=== PATIENT | male | born 1960 | race Caucasian/White ===

== ENCOUNTER → 2017-09-27 | Outpatient (CLI) | payer OTHER ==
--- NOTE | 2017-09-27 10:42 | XR ---
EXAMINATION TYPE: XR shoulder complete LT DATE OF EXAM: 09/27/2017 COMPARISON: NONE HISTORY: Pain TECHNIQUE: Shoulder examined in 3 FINDINGS: The humeral head articulates with the glenoid. The acromio-clavicular junction is normal. It is noted that there is some downward sloping of the acr omion which could contribute to impingement syndrome. This could be further evaluated with MRI. No acute fractures or dislocations are evident. A follow up study can be performed 7-10 days from acute trauma for continued pain. IMPRESSION: 1. Downward sloping acromion. 2. No acute osseous abnormality.
== END | disposition home or self-care (01) ==
LOC: RADXRWHC 10:00
PROVIDERS: ATTEND Emergency Medicine
DX: S43.402A Unspecified sprain of left shoulder joint, initial encounter (principal)

== ENCOUNTER → 2019-01-11 | Outpatient (CLI) | payer OTHER ==
--- NOTE | 2019-01-11 15:11 | XR ---
EXAMINATION TYPE: XR shoulder complete LT DATE OF EXAM: 01/11/2019 COMPARISON: NONE HISTORY: Pain TECHNIQUE: Three views are submitted. FINDINGS: The osseous structures are intact. There is no acute fracture or dislocation. Arthropathy of the AC joint with a acromial spur. IMPRESSION: 1. AC joint arthropathy correlate for chronic rotator cuff disease.
--- NOTE | 2019-01-11 15:14 | XR ---
Cervical spine HISTORY: Trauma and pain 6 views of the cervical spine Gastric calcifications are likely present in the distribution of the carotid arteries. Is multilevel facet arthropathy. Lateral extension of endplates at C4-5, C5-6, C6-7 on the right, C3-4 on the left at C2-3 likely causes some foraminal encroachment. Minimal retrolisthesis grade 1 C2-3, C3-4. Cervica l vertebral bodies show preserved height. Bone mineralization is reduced. There is multilevel spondyl osis. IMPRESSION: Degenerative disc disease and facet arthropathy. Osteopenia.
--- NOTE | 2019-01-11 15:15 | XR ---
AP pelvis HISTORY: Trauma, pain in left hip Single frontal view of the pelvis Bone mineralization is mildly reduced. Surgical roel are present over the right pelvis. Alignment is maintained. Mild loss of joint space in the hip joints. Vascular calcifications present within the pelvis. IMPRESSION: No fracture or dislocation.
--- NOTE | 2019-01-11 15:15 | XR ---
EXAMINATION TYPE: XR Hip Complete LT DATE OF EXAM: 01/11/2019 COMPARISON: NONE HISTORY: TECHNIQUE: 2 views submitted FINDINGS: There is no evidence of erosive change or acute fracture. Pain mild concentric narrowing the joint space and there is hypertrophic change of the acetabulum. Sm all spur extending off the greater trochanter. IMPRESSION: 1. No evidence of acute fracture or dislocation. 2. Arthropathy correlate for femoral acetabular impingement.
--- NOTE | 2019-01-11 15:16 | XR ---
Thoracic spine HISTORY: Trauma and pain 3 views of the thoracic spine There is mild spinal curvature. Thoracic vertebral bodies show preserved height. Anterior osteophytes show configuration compatible with diffuse idiopathic skeletal hyperostosis. IMPRESSION: No acute fracture or subluxation.
--- NOTE | 2019-01-11 15:19 | XR ---
Lumbar spine HISTORY: Trauma and pain 3 views of the lumbar spine Lumbar vertebral bodies show preserved height and alignment. Is multilevel spondylosis. Loss of disc height L5-S1, L3-4. Sclerosis present in the posterior elements of the lower lumbar spine compatible with facet arthropathy. There is abdominal aortic aneurysm noted incidentally. This may be as large a s 8 cm although image may be magnified. IMPRESSION: Abdominal aortic aneurysm. Degenerative disc disease. No acute fracture or subluxation. F acet arthropathy. A Yellow level critical message alert has been initiated for Alessandro Salcedo DO via the [employer] Critical Results System on 01/11/2019 3:16 PM. This message alert has been sent to Alessandro sood DO via the preferences provided by the clinician for the receipt of Radiology Critical Finding s. Message ID [id number].
== END | disposition home or self-care (01) ==
LOC: RADXRMAIN 13:54
PROVIDERS: ATTEND Emergency Medicine
DX: M51.36 Other intervertebral disc degeneration, lumbar region (principal); S13.4XXA Sprain of ligaments of cervical spine, initial encounter; S23.3XXA Sprain of ligaments of thoracic spine, initial encounter; S33.5XXA Sprain of ligaments of lumbar spine, initial encounter; S40.012A Contusion of left shoulder, initial encounter; S30.0XXA Contusion of lower back and pelvis, initial encounter; M19.012 Primary osteoarthritis, left shoulder; M85.80 Other specified disorders of bone density and structure, unspecified site; I71.4 Abdominal aortic aneurysm, without rupture
CPT/HCPCS: 72050; 72072; 72100; 72170; 73502

== ENCOUNTER 2023-07-10 10:27 | Inpatient (IN) | payer BC ==
[2023-07-10] MEDS ORDERED: methylPREDNISolone SOD SUCCI 125 MG/2 ML VIAL IV STA (11:09)
[2023-07-10] MEDS ORDERED: ALBUTEROL HFA INHALER INHALATION STA (11:10)
[2023-07-10 11:23] LABS: Basophils % (A) 0 %; Eosinophils % (A) 0 %; HCT 44.3 % (39.0-53.0); HGB 14.7 gm/dL (13.0-17.5); Lymphocytes # (A) 0.6 k/uL (1.0-4.8); Lymphocytes % (A) 8 %; MCHC 33.1 g/dL (31.0-37.0); MCV 96.6 fL (80.0-100.0); Mean Platelet Volume 7.7; Monocytes # (A) 0.4 k/uL (0-1.0); Monocytes % (A) 6 %; Neutrophils # (A) 6.1 k/uL (1.3-7.7); Neutrophils % (A) 83 %; Platelet Count 119 k/uL (150-450); RBC 4.59 m/uL (4.30-5.90); RDW 12.8 % (11.5-15.5); WBC 7.3 k/uL (3.8-10.6)
--- NOTE | 2023-07-10 11:25 | ED ---
General Adult HPI - General Chief complaint: Shortness of Breath Stated complaint: covid+ Time Seen by Provider: 07/10/23 10:44 Source: patient, RN notes reviewed, old records reviewed Mode of arrival: ambulatory Limitations: no limitations - History of Present Illness Initial comments: 62-year-old male presented from urgent care with hypoxia and was diagnosed with coronavirus this morning. Patient has history of tobacco use and is currently smoking, no diagnosis of COPD. He denies central chest pain. He has had fever and dyspnea over the past one to 2 days. No lower extremity pain or swelling. - Related Data Allergies Allergy/AdvReac Type Severity Reaction Status Date / Time sulfamethoxazole Allergy Rash/Hives Verified 07/10/23 10:37 [From Bactrim] trimethoprim [From Bactrim] Allergy Rash/Hives Verified 07/10/23 10:37 Review of Systems ROS Statement: Those systems with pertinent positive or pertinent negative responses have been documented in the HPI. ROS Other: All systems not noted in ROS Statement are negative. Past Medical History History of Any Multi-Drug Resistant Organisms: None Reported Past Surgical History: Heart Catheterization With Stent, Hernia Repair, Tonsillectomy Additional Past Surgical History / Comment(s): 2019 cardiac stents Past Psychological History: No Psychological Hx Reported Smoking Status: Current every day smoker Past Alcohol Use History: None Reported Past Drug Use History: None Reported General Exam Limitations: no limitations General appearance: alert, in no apparent distress Head exam: Present: atraumatic, normocephalic Eye exam: Present: normal appearance, PERRL ENT exam: Present: normal exam Neck exam: Present: normal inspection. Absent: tenderness, meningismus Respiratory exam: Present: respiratory distress, wheezes, rhonchi Cardiovascular Exam: Present: regular rate, normal rhythm GI/Abdominal exam: Present: soft. Absent: distended, tenderness, guarding Extremities exam: Present: normal inspection, normal capillary refill. Absent: pedal edema, calf tenderness Neurological exam: Present: alert, oriented X3, CN II-XII intact. Absent: motor sensory deficit Course Vital Signs 07/10/23 07/10/23 07/10/23 10:31 10:36 11:04 Temperature 98.4 F Pulse Rate 96 96 90 Respiratory 22 26 H 24 Rate Blood Pressure 141/87 141/97 140/90 O2 Sat by Pulse 87 L 86 L 95 Oximetry 07/10/23 11:20 Temperature Pulse Rate 93 Respiratory 29 H Rate Blood Pressure 141/97 O2 Sat by Pulse 98 Oximetry Medical Decision Making - Medical Decision Making Was pt. sent in by a medical professional or institution (BRANDON Funk, DESIZING MACHINE OPERATOR, urgent c are, hospital, or [place] [facility] facility...) When possible be specific @ -No Did you speak to anyone other than the patient for history (EMS, parent, family, police, friend...)? What history was obtained from this source @ -No Did you review nursing and triage notes (agree or disagree)? Why? @ -I reviewed and agree with nursing and triage notes Were old charts reviewed (outside hosp., previous admission, EMS record, old EKG, old radiological studies, urgent care reports/EKG's, [place] [facility] facility records)? Report findings @ -No old charts were reviewed Differential Diagnosis (chest pain, altered mental status, abdominal pain women, abdominal pain men, vaginal bleeding, weakness, fever, dyspnea, syncope, headache, dizziness, GI bleed, back pain, seizure, CVA, palpatations, mental health, musculoskeletal)? @ Differential Dyspnea: Coronary syndrome, arrhythmia, tamponade, asthma, COPD, pulmonary embolism, pneumonia, pneumothorax, pulmonary effusion, anaphylaxis, diabetic ketoacidosis, flailed chest, pulmonary contusion, diaphragmatic rupture, anemia, neuromuscular, this is not meant to be an all-inclusive list. EKG interpreted by me (3pts min.). @ -[Sinus rhythm rate of 94, SC interval 134, QRS duration 102, QTC 417, ST segment depression inferiorly and in the lateral precordial leads. No ST segment elevation. X-rays interpreted by me (1pt min.). @ Chest x-ray showing bilateral interstitial infiltrates in lung bases CT interpreted by me (1pt min.). @ -None done U/S interpreted by me (1pt. min.). @ -None done What testing was considered but not performed or refused? (CT, X-rays, U/S, labs)? Why? @ -None What meds were considered but not given or refused? Why? @ -None Did you discuss the management of the patient with other professionals (professionals i.e. BRANDON Funk, DESIZING MACHINE OPERATOR, lab, RT, psych nurse, social worker psychiatric, corporation lawyer, teacher, chief juvenile probation officer, case technician)? Give summary @ -No Was smoking cessation discussed for >3mins.? @ -No Was critical care preformed (if so, how long)? @ -No Were there social determinants of health that impacted care today? How? (Ho melessness, low income, unemployed, alcoholism, drug addiction, transportation, low edu. Level, literacy, decrease access to med. care, snf, rehab)? @ -No Was there de-escalation of care discussed even if they declined (Discuss DNR or withdrawal of care, Hospice)? DNR status @ -No What co-morbidities impacted this encounter? (DM, HTN, Smoking, COPD, CAD, Cancer, CVA, ARF, Chemo, Hep., AIDS, mental health diagnosis, sleep apnea, morbid obesity)? @ -COPD Was patient admitted / discharged? Hospital course, mention meds given and route, prescriptions, significant lab abnormalities, going to OR and other pertinent info. @ -62-year-old male with cough, dyspnea, current smoker. Diagnosed with coronavirus at urgent care. Patient is hypoxic requiring supplemental oxygen. He has wheezing bilaterally. He will be admitted for COPD exacerbation secondary to coronavirus with likely coronavirus pneumonia. He has a minimally elevated troponin which is likely related to hypoxia in this level will be trended. He has no active chest pain. Admitted to Dr. mckeon. Undiagnosed new problem with uncertain prognosis? @ -No Drug Therapy requiring intensive monitoring for toxicity (Heparin, Nitro, Insulin, Cardizem)? @ -No Were any procedures done? @ -No Diagnosis/symptom? @ -[Coronavirus, hypoxia, COPD exacerbation Acute, or Chronic, or Acute on Chronic? @ -[Acute Uncomplicated (without systemic symptoms) or Complicated (systemic symptoms)? @ -default Side effects of treatment? @ -No Exacerbation, Progression, or Severe Exacerbation? @ -No Poses a threat to life or bodily function? How? (Chest pain, [place], [place], pneumonia, PE, COPD, DKA, ARF, appy, cholecystitis, CVA, Diverticulitis, Homicidal, Suicidal, threat to staff... and all critical care pts) @ -[Yes, respiratory failure - Lab Data Result diagrams: 07/10/23 10:50 07/10/23 10:50 Lab Results 07/10/23 07/10/23 07/10/23 Range/Units 10:50 10:50 10:50 WBC 7.3 (3.8-10.6) k/uL RBC 4.59 (4.30-5.90) m/uL Hgb 14.7 (13.0-17.5) gm/dL Hct 44.3 (39.0-53.0) % MCV 96.6 (80.0-100.0) fL MCH 32.0 (25.0-35.0) pg MCHC 33.1 (31.0-37.0) g/dL RDW 12.8 (11.5-15.5) % Plt Count 119 L (150-450) k/uL MPV 7.7 Neutrophils % 83 % Lymphocytes % 8 % Monocytes % 6 % Eosinophils % 0 % Basophils % 0 % Neutrophils # 6.1 (1.3-7.7) k/uL Lymphocytes # 0.6 L (1.0-4.8) k/uL Monocytes # 0.4 (0-1.0) k/uL Eosinophils # 0.0 (0-0.7) k/uL Basophils # 0.0 (0-0.2) k/uL PT 11.1 (10.0-12.5) sec INR 1.0 (<1.2) APTT 28.3 (22.0-30.0) sec Sodium 137 (137-145) mmol/L Potassium 4.2 (3.5-5.1) mmol/L Chloride 99 (98-107) mmol/L Carbon Dioxide 30 (22-30) mmol/L Anion Gap 8 mmol/L BUN 15 (9-20) mg/dL Creatinine 0.66 (0.66-1.25) mg/dL Est GFR (CKD-EPI)AfAm >90 (>60 ml/min/1.73 sqM) Est GFR (CKD-EPI)NonAf >90 (>60 ml/min/1.73 sqM) Glucose 108 H (74-99) mg/dL Plasma Lactic Acid Basil (0.7-2.0) mmol/L Calcium 9.0 (8.4-10.2) mg/dL Total Bilirubin 0.6 (0.2-1.3) mg/dL AST 38 (17-59) U/L ALT 31 (4-49) U/L Alkaline Phosphatase 72 (38-126) U/L Troponin I (0.000-0.034) ng/mL Total Protein 6.5 (6.3-8.2) g/dL Albumin 3.8 (3.5-5.0) g/dL 07/10/23 07/10/23 Range/Units 10:50 10:50 WBC (3.8-10.6) k/uL RBC (4.30-5.90) m/uL Hgb (13.0-17.5) gm/dL Hct (39.0-53.0) % MCV (80.0-100.0) fL MCH (25.0-35.0) pg MCHC (31.0-37.0) g/dL RDW (11.5-15.5) % Plt Count (150-450) k/uL MPV Neutrophils % % Lymphocytes % % Monocytes % % Eosinophils % % Basophils % % Neutrophils # (1.3-7.7) k/uL Lymphocytes # (1.0-4.8) k/uL Monocytes # (0-1.0) k/uL Eosinophils # (0-0.7) k/uL Basophils # (0-0.2) k/uL PT (10.0-12.5) sec INR (<1.2) APTT (22.0-30.0) sec Sodium (137-145) mmol/L Potassium (3.5-5.1) mmol/L Chloride (98-107) mmol/L Carbon Dioxide (22-30) mmol/L Anion Gap mmol/L BUN (9-20) mg/dL Creatinine (0.66-1.25) mg/dL Est GFR (CKD-EPI)AfAm (>60 ml/min/1.73 sqM) Est GFR (CKD-EPI)NonAf (>60 ml/min/1.73 sqM) Glucose (74-99) mg/dL Plasma Lactic Acid Basil 0.6 L (0.7-2.0) mmol/L Calcium (8.4-10.2) mg/dL Total Bilirubin (0.2-1.3) mg/dL AST (17-59) U/L ALT (4-49) U/L Alkaline Phosphatase (38-126) U/L Troponin I 0.045 H* (0.000-0.034) ng/mL Total Protein (6.3-8.2) g/dL Albumin (3.5-5.0) g/dL Disposition Clinical Impression: Acute exacerbation of chronic obstructive pulmonary disease, COVID-19 Disposition: ADMITTED IP TO THIS HOSP Condition: Stable Is patient prescribed a controlled substance at d/c from ED?: No Referrals: Alessandro Abebe MD [Primary Care Provider] - 1-2 days Time of Disposition: 12:57
[2023-07-10 11:41] LABS: ALT 31 U/L (4-49); AST 38 U/L (17-59); African American GFR (CKD) >90 (>60 ml/min/1.73 sqM); Albumin 3.8 g/dL (3.5-5.0); Alkaline Phosphatase 72 U/L (38-126); Anion Gap 8 mmol/L; Blood Urea Nitrogen 15 mg/dL (9-20); Carbon Dioxide 30 mmol/L (22-30); Chloride 99 mmol/L (98-107); Glucose 108 mg/dL (74-99); Non-African American GFR(CKD) >90 (>60 ml/min/1.73 sqM); Potassium 4.2 mmol/L (3.5-5.1); Sodium 137 mmol/L (137-145); Total Bilirubin 0.6 mg/dL (0.2-1.3); Total Protein 6.5 g/dL (6.3-8.2)
[2023-07-10 12:06] LABS: Partial Thromboplastin Time 28.3 sec (22.0-30.0); Prothrombin Time 11.1 sec (10.0-12.5)
--- NOTE | 2023-07-10 12:08 | XR ---
EXAMINATION TYPE: XR chest 2V DATE OF EXAM: 07/10/2023 COMPARISON: None HISTORY: 62 year-old male shortness of breath, difficulty breathing TECHNIQUE: PA and lateral views FINDINGS: Heart upper limits of normal in size. Hyperinflation. Patchy interstitial densities mid and lower luigi gs. No mu consolidation or pleural effusion. IMPRESSION: COPD with patchy interstitial densities mid and lower lungs. This could represent patchy COVID infilt rates.
[2023-07-10] MEDS ORDERED: ACETAMINOPHEN TAB 325 MG TAB PO PRN (12:50)
[2023-07-10] MEDS ORDERED: NALOXONE 0.4 MG/ML 1 ML VIAL IV PRN (12:50)
[2023-07-10] MEDS: SODIUM CHLORIDE 0.9% 1,000 ML IV SCH (15:13)
[2023-07-10] MEDS: CHOLECALCIFEROL 25 MCG (1000 IU) TABLET PO SCH (15:13)
[2023-07-10] MEDS: methylPREDNISolone SOD SUCCI 125 MG/2 ML VIAL IV SCH ×2 (16:59→23:15)
[2023-07-10] MEDS ORDERED: ALBUTEROL HFA INHALER INHALATION PRN (18:02)
[2023-07-10] MEDS: NICOTINE 14MG/24HR PATCH TRANSDERM SCH (18:11)
[2023-07-10] MEDS: ALBUTEROL HFA INHALER INHALATION SCH (18:14)
[2023-07-10] MEDS: FAMOTIDINE 20 MG TAB PO SCH (20:10)
[2023-07-10] MEDS: HEPARIN SODIUM,PORCINE 5,000 UNIT/ML 1 ML VIAL SQ SCH (20:10)
[2023-07-10] MEDS ORDERED: FAMOTIDINE 20 MG/2 ML VIAL IV SCH (21:00)
[2023-07-10] MEDS: ASPIRIN 81 MG PO SCH (23:16)
--- NOTE | 2023-07-10 23:16 | P.HPIM ---
History of Present Illness This is a pleasant 62 years old male with past medical history of coronary artery disease status post stent in 2019. Presents because of worsening shortness of breath associated with cough and white phlegm over the last few days but no overt chest pain Patient denies also abdominal pain no change in urine or bowel habits. No vomi ting. No fever. He smokes without specification and his counseled to quit and he agrees. No illicit drug source alcohol. Labs reviewed rather unremarkable except for mildly elevated troponin. Covid test is positive EKG showing normal sinus rhythm at [address] depression in the lateral limits. Chest x-ray showed COPD changes with bilateral mild infiltrates in the middle and lower zones. Patient is started on IV Solu-Medrol and normal saline. Review of Systems Review of systems CONSTITUTIONAL: No fever, no malaise, no fatigue. HEENT: No recent visual problems or hearing problems. Denied any sore throat. CARDIOVASCULAR: No orthopnea, PND, no palpitations, no syncope. PULMONARY: No chest wall tenderness, no hemoptysis. GASTROINTESTINAL: No diarrhea, no nausea, no vomiting, no abdominal pain. Normoactive bowel sounds. NEUROLOGICAL: No headaches, no weakness, no numbness. HEMATOLOGICAL: Denies any bleeding or petechiae. GENITOURINARY: Denies any burning micturition, frequency, or urgency. MUSCULOSKELETAL/RHEUMATOLOGICAL: Denies any joint pain, swelling, or any muscle pain. ENDOCRINE: Denies any polyuria or polydipsia. Past Medical History History of Any Multi-Drug Resistant Organisms: None Reported Past Surgical History: Heart Catheterization With Stent, Hernia Repair, Tonsillectomy Additional Past Surgical History / Comment(s): 2019 cardiac stents Past Psychological History: No Psychological Hx Reported Smoking Status: Current every day smoker Past Alcohol Use History: None Reported Past Drug Use History: None Reported Medications and Allergies Home Medications Medication Instructions Recorded Confirmed Type Acetaminophen [Tylenol Arthritis] 650 mg PO DAILY 07/10/23 07/10/23 History Aspirin EC [Ecotrin Low Dose] 81 mg PO DAILY 07/10/23 07/10/23 History Clobetasol Propionate [Temovate 1 applic TOPICAL BID 07/10/23 07/10/23 History 0.05% Cream] Multivit-Mins/Iron/Folic/Lycop 1 tab PO DAILY 07/10/23 07/10/23 History [Centrum Men's Tablet] Naproxen [EC-Naprosyn] 500 mg PO BID 07/10/23 07/10/23 History Allergies Allergy/AdvReac Type Severity Reaction Status Date / Time sulfamethoxazole Allergy Rash/Hives Verified 07/10/23 14:09 [From Bactrim] trimethoprim [From Bactrim] Allergy Rash/Hives Verified 07/10/23 14:09 Physical Exam Vitals: Vital Signs Temp Pulse Resp BP Pulse Ox 07/10/23 11:20 93 29 H 141/97 98 07/10/23 11:04 90 24 140/90 95 07/10/23 10:36 96 26 H 141/97 86 L 07/10/23 10:31 98.4 F 96 22 141/87 87 L Intake and Output 07/09/23 07/10/23 07/10/23 22:59 06:59 14:59 Other: Weight 114.305 kg GENERAL: The patient is alert and oriented x3, not in any acute distress. Well developed, well nourished. HEENT: Pupils are round and equally reacting to light. EOMI. No scleral icterus. No conjunctival pallor. Normocephalic, atraumatic. No pharyngeal erythema. No thyromegaly. CARDIOVASCULAR: S1 and S2 present. No murmurs, rubs, or gallops. -PULMONARY: Chest is clear to auscultation, bilateral expiratory wheezing , no crackles. ABDOMEN: Soft, nontender, nondistended, normoactive bowel sounds. No palpable organomegaly. MUSCULOSKELETAL: No joint swelling or deformity. EXTREMITIES: No cyanosis, clubbing, or pedal edema. NEUROLOGICAL: Gross neurological examination did not reveal any focal deficits. SKIN: No rashes. no petechiae. Results CBC & Chem 7: 07/10/23 10:50 07/10/23 10:50 Labs: Abnormal Lab Results - Last 24 Hours (Table) 07/10/23 07/10/23 07/10/23 Range/Units 10:50 10:50 10:50 Plt Count 119 L (150-450) k/uL Lymphocytes # 0.6 L (1.0-4.8) k/uL Glucose 108 H (74-99) mg/dL Plasma Lactic Acid Basil 0.6 L (0.7-2.0) mmol/L Troponin I (0.000-0.034) ng/mL 07/10/23 Range/Units 10:50 Plt Count (150-450) k/uL Lymphocytes # (1.0-4.8) k/uL Glucose (74-99) mg/dL Plasma Lactic Acid Basil (0.7-2.0) mmol/L Troponin I 0.045 H* (0.000-0.034) ng/mL Assessment and Plan Assessment: Acute Covid infection Acute COPD exacerbation Mildly elevated troponin most likely secondary to Covid infection, rule out cardiac causes Pertinent dependence History of coronary artery disease status post stenting Obesity with BMI of 30 4. Plan: Continue with IV Solu-Medrol A bronchodilator Vitamin D C and zinc. Pulmonary consult Continue with aspirin Cardiology consult Check echocardiogram Labs and medication were reviewed.. Continue same treatment. Continue with symptomatic treatment. Resume home medication. Monitor labs and vitals. DVT and GI prophylaxis. Further recommendations as per clinical course of the patient DVT prophylaxis: Subcutaneous heparin GI Prophylaxis: Pepcid PT/OT: Pending Prognosis is guarded
[2023-07-11] MEDS: SODIUM CHLORIDE 0.9% 1,000 ML IV SCH ×2 (05:04→17:19)
[2023-07-11] MEDS: methylPREDNISolone SOD SUCCI 125 MG/2 ML VIAL IV SCH ×4 (05:07→23:02)
[2023-07-11] MEDS: NICOTINE 14MG/24HR PATCH TRANSDERM SCH (08:20)
[2023-07-11] MEDS: ASCORBIC ACID 500 MG TAB PO SCH (08:20)
[2023-07-11] MEDS: ASPIRIN 81 MG PO SCH (08:21)
[2023-07-11] MEDS: HEPARIN SODIUM,PORCINE 5,000 UNIT/ML 1 ML VIAL SQ SCH ×2 (08:21→19:49)
[2023-07-11] MEDS: ZINC SULFATE 220 MG CAP PO SCH (08:21)
[2023-07-11] MEDS: CHOLECALCIFEROL 25 MCG (1000 IU) TABLET PO SCH (08:21)
[2023-07-11] MEDS: FAMOTIDINE 20 MG TAB PO SCH ×2 (08:21→19:50)
[2023-07-11 08:43] LABS: Basophils % (A) 0 %; Eosinophils % (A) 0 %; HCT 44.5 % (39.0-53.0); HGB 14.5 gm/dL (13.0-17.5); Lymphocytes # (A) 0.3 k/uL (1.0-4.8); Lymphocytes % (A) 3 %; MCH 32.2 pg (25.0-35.0); MCHC 32.6 g/dL (31.0-37.0); MCV 98.7 fL (80.0-100.0); Mean Platelet Volume 7.6; Monocytes # (A) 0.3 k/uL (0-1.0); Monocytes % (A) 3 %; Neutrophils # (A) 8.9 k/uL (1.3-7.7); Neutrophils % (A) 93 %; Platelet Count 141 k/uL (150-450); RBC 4.51 m/uL (4.30-5.90); RDW 12.8 % (11.5-15.5); WBC 9.5 k/uL (3.8-10.6)
[2023-07-11] MEDS ORDERED: ASPIRIN 81 MG PO SCH (09:00)
[2023-07-11 09:06] LABS: African American GFR (CKD) >90 (>60 ml/min/1.73 sqM); Anion Gap 7 mmol/L; Blood Urea Nitrogen 18 mg/dL (9-20); Carbon Dioxide 30 mmol/L (22-30); Chloride 101 mmol/L (98-107); Glucose 177 mg/dL (74-99); LDH 235 U/L (120-246); Non-African American GFR(CKD) >90 (>60 ml/min/1.73 sqM); Potassium 4.7 mmol/L (3.5-5.1); Sodium 138 mmol/L (137-145)
[2023-07-11] MEDS: ALBUTEROL HFA INHALER INHALATION SCH ×4 (09:25→20:54)
[2023-07-11 09:26] LABS: C Reactive Protein 6.3 mg/dL (<1.0)
--- NOTE | 2023-07-11 11:56 | P.CNPUL ---
History of Present Illness Consult date: 07/11/23 Reason for consult: dyspnea History of present illness: This is a 62-year-old male patient was being seen for a Covid 19 infection. The patient tested positive for Covid 19 yesterday. Started getting sick and his symptoms started approximately 4 days ago. He is an ex-smoker. Probably COPD at baseline although this hasn't been officially diagnosed. Does not utilize any form of respiratory medications or inhalers. He had increased cough and congestion and chest tightness and wheezing and he ended up coming into the hospital, found hypoxic and currently is on oxygen by nasal cannula and is maintained on 2 L. Chest x-ray showed COPD with patchy interstitial infiltrates in the mid and lower lung [place] bilaterally. No previous history of DVT or pulmonary embolism. No previous history of Covid 19 infection. The patient has had the original series of vaccination for Covid 19. No infections in the past. White cell count is at 9.5, and was 14, platelet count of 141. BUN is at 80 with a creatinine of 0.6. D-dimer is at 1.58. Sodium is at 138. Troponins are 0.03 and down trending and the LDH level is at 235. No altered mentation. No gastrointestinal symptoms. Review of Systems Constitutional: Reports fatigue, Reports poor appetite, Reports weakness Ears: deny: decreased hearing, ear discharge, earache, tinnitus Ears, nose, mouth and throat: Reports as per HPI Breasts: absent: as per HPI, gynecomastia Cardiovascular: Reports claudication, Reports dyspnea on exertion Respiratory: Reports cough, Reports dyspnea Gastrointestinal: Reports as per HPI Genitourinary: Reports as per HPI Musculoskeletal: Reports as per HPI Musculoskeletal: absent: ankle pain, ankle stiffness, ankle swelling, as per HPI, elbow pain, elbow stiffness, elbow swelling, foot pain, foot stiffness, foot swelling, hand pain, hand stiffness, hand swelling, hip pain, hip stiffne ss, hip swelling, knee pain, knee stiffness, knee swelling, shoulder pain, shoulder stiffness, shoulder swelling, wrist pain, wrist stiffness, wrist swelling Integumentary: Reports as per HPI Neurological: Reports as per HPI Psychiatric: Reports as per HPI Endocrine: Reports as per HPI Hematologic/Lymphatic: Reports as per HPI Past Medical History Past Medical History: COPD Additional Past Medical History / Comment(s): AAA History of Any Multi-Drug Resistant Organisms: None Reported Past Surgical History: Hernia Repair, Tonsillectomy Additional Past Surgical History / Comment(s): 2019 cardiac stents Past Anesthesia/Blood Transfusion Reactions: No Reported Reaction Past Psychological History: No Psychological Hx Reported Smoking Status: Current every day smoker Past Alcohol Use History: None Reported Past Drug Use History: None Reported Medications and Allergies Home Medications Medication Instructions Recorded Confirmed Type Acetaminophen [Tylenol Arthritis] 650 mg PO DAILY 07/10/23 07/10/23 History Aspirin EC [Ecotrin Low Dose] 81 mg PO DAILY 07/10/23 07/10/23 History Clobetasol Propionate [Temovate 1 applic TOPICAL BID 07/10/23 07/10/23 History 0.05% Cream] Multivit-Mins/Iron/Folic/Lycop 1 tab PO DAILY 07/10/23 07/10/23 History [Centrum Men's Tablet] Naproxen [EC-Naprosyn] 500 mg PO BID 07/10/23 07/10/23 History Allergies Allergy/AdvReac Type Severity Reaction Status Date / Time sulfamethoxazole Allergy Rash/Hives Verified 07/10/23 14:09 [From Bactrim] trimethoprim [From Bactrim] Allergy Rash/Hives Verified 07/10/23 14:09 Physical Exam Vitals: Vital Signs Temp Pulse Pulse Resp BP BP Pulse Ox 07/11/23 09:25 96 07/11/23 08:19 98.1 F 104 H 20 137/94 92 L 07/11/23 04:00 79 18 150/97 96 07/10/23 23:35 76 18 141/78 95 07/10/23 20:00 98.2 F 85 18 143/72 95 07/10/23 15:05 97.9 F 99 19 135/99 95 07/10/23 14:00 99 21 131/92 95 07/10/23 13:30 92 24 111/73 93 L 07/10/23 12:30 98 28 H 128/97 97 07/10/23 12:00 89 24 128/100 97 07/10/23 11:20 93 29 H 141/97 98 07/10/23 11:04 90 24 140/90 95 07/10/23 10:36 96 26 H 141/97 86 L 07/10/23 10:31 98.4 F 96 22 141/87 87 L Intake and Output 07/10/23 07/11/23 07/11/23 22:59 06:59 14:59 Intake Total 658 480 Balance 658 480 Intake: Oral 658 480 Other: Voiding Method Toilet Toilet Toilet # Bowel Movements 1 Gen. appearance obese, comfortable currently on 2 L Head exam was generally normal. There was no scleral icterus or corneal arcus. Mucous membranes were moist. Neck was supple and without jugular venous distension, thyromegaly, or carotid bruits. Carotids were easily palpable bilaterally. There was no adenopathy. Lungs although the medicine scattered WHEEZES and rhonchi heard bilaterally Cardiac exam revealed the PMI to be normally situated and sized. The rhythm was regular and no extrasystoles were noted during several minutes of auscultation. The first and second heart sounds were normal and physiologic splitting of the second heart sound was noted. There were no murmurs, rubs, clicks, or gallops. Abdominal exam revealed normal bowel sounds. The abdomen was soft, non-tender, and without masses, organomegaly, or appreciable enlargement of the abdominal aorta. Examination of the extremities revealed easily palpable radial, femoral and pedal pulses. There was no cyanosis, clubbing or edema. Examination of the skin revealed no evidence of significant rashes, suspicious appearing nevi or other concerning lesions. Neurologically, the patient is awake and alert and the patient does not have any focal neurological deficit. Cranial nerves are essentially intact. Results - Laboratory Findings CBC and BMP: 07/11/23 08:11 07/11/23 08:11 PT/INR, D-dimer PT 11.1 sec (10.0-12.5) 07/10/23 10:50 INR 1.0 (<1.2) 07/10/23 10:50 Abnormal lab findings: Abnormal Labs 07/10/23 07/10/23 07/10/23 10:50 10:50 10:50 Plt Count 119 L Neutrophils # Lymphocytes # 0.6 L Creatinine Glucose 108 H Plasma Lactic Acid Basil 0.6 L Troponin I C-Reactive Protein SARS-CoV-2 (PCR) 07/10/23 07/10/23 07/10/23 10:50 14:18 14:23 Plt Count Neutrophils # Lymphocytes # Creatinine Glucose Plasma Lactic Acid Basil Troponin I 0.045 H* 0.036 H* C-Reactive Protein SARS-CoV-2 (PCR) Detected A 12/10/23 12/10/23 08:11 08:11 Plt Count 141 L Neutrophils # 8.9 H Lymphocytes # 0.3 L Creatinine 0.60 L Glucose 177 H Plasma Lactic Acid Basil Troponin I C-Reactive Protein 6.3 H SARS-CoV-2 (PCR) - Diagnostic Findings Chest x-ray: image reviewed Assessment and Plan Plan: Acute Covid 19 infection. Symptoms started around 3-4 days ago. Diagnosis was confirmed yesterday. Received original vaccination series. No boosters. This is the only infection and the patient had with Covid 19. Acute exacerbation of COPD Bilateral interstitial pulmonary infiltrates, consider possibility of Covid 19 related pneumonia Mildly elevated d-dimer Shortness of breath secondary to above History of abdominal aortic aneurysm status post endovascular stent grafting Obesity Plan Obtain a CT angiogram of the chest, rule out pulmonary embolism, rule out COPD, rule out interstitial pulmonary infiltrates related to Covid 19 Titrate oxygen flow to maintain saturation above 90% Continue IV Solu-Medrol Continue vitamin C and zinc Titrate oxygen flow to maintain saturation above 90% Ventolin HFA 4 times a day [id number] LDH is mildly elevated We'll continue to follow
--- NOTE | 2023-07-11 12:20 | CT ---
EXAMINATION TYPE: CT angio chest DATE OF EXAM: 07/11/2023 COMPARISON: Radiograph 07/10/2023 HISTORY: 62-year-old male with shortness of breath, Covid, dyspnea. Possible PE. TECHNIQUE: Contiguous axial scanning of the chest after the administration of 100 ml mL of Isovue 370 . Coronal/sagittal MIP reconstructions performed. CT DLP: 625.8mGycm. Automatic exposure control utilized for a dose reduction. FINDINGS: Heart upper limits of normal in size without pericardial effusion. No flattening of the interventricu lar septum reflux of contrast into the hepatic veins. LAD and circumflex coronary artery calcificatio ns are present. Ectatic aortic root at 3.9 cm. Conventional arch vessel branching anatomy. Ectatic upper descending t horacic aorta 3.4 cm. Scattered nonenlarged mediastinal and right hilar lymph nodes. Satisfactory opacification of the pulmonary arterial system. The right and left main pulmonary arteri es are mildly dilated up to 2.8 cm suggesting underlying pulmonary artery hypertension. There is some mild beam hardening artifacts in the perihilar regions are relating to dense contrast in the SVC. Al lowing for this limitation, no definite pulmonary embolus is seen. Muscle moderate diffuse bronchial wall thickening. Mild emphysematous change. Mild patchy densities i n the lower lungs. No mu consolidation or pleural effusion. Tiny hiatal hernia. Visualized upper abdomen shows thickening of the left adrenal gland without discr ete nodularity. Nonspecific, mildly dilated loop of jejunum anterior left upper quadrant, probably transient. There i s variant anatomy with a separate takeoff of the common hepatic artery directly from the aorta. Bones: [facility] throughout the mid and lower thoracic spine. IMPRESSION: 1. Prominent beam hardening artifact from dense contrast bolus in the SVC. Allowing for this limitati on, no definite pulmonary embolus is seen. 2. COPD with mild emphysema. Pulmonary arterial hypertension. 3. Mild patchy bibasilar densities, possibly minimal change due to atypical/ COVID pneumonia.
[2023-07-11] MEDS ORDERED: REMDESIVIR 200 MG in SODIUM CHLORIDE 0.9% 250 ML IVPB ONE (13:00)
--- NOTE | 2023-07-11 15:01 | P.CRDCN ---
History of Present Illness Consult date: 07/11/23 Requesting physician: Varinder E Sheet Reason for Consult (text): COVID, pos trop Chief complaint: Shortness of breath, cough History of present illness: This is a pleasant 62-year-old gentleman with history of abdominal aortic aneurysm, status post stenting, follows with CV surgeon out of [place]. He has history of hypertension, hyperlipidemia, diabetes or CAD. He has a history of smoking about 15 cigarettes a day for over 40 years. Initially presented to urgent care with cough and shortness of breath. He was found to be positive for cold blood and oxygen saturation was low 80s. We were asked to the patient in consultation for troponin elevation which came back as 0.045, 0.036, 0.025 0.022. Denies any complaints of chest discomfort. EKG showed sinus mechanism with diffuse ST-T wave abnormalities with no EKGs to compare. Blood pressure has been on the high side. Heart rate has been in the 90s. He is being followed by pulmonary. He's been Initiated on Solu-Medrol and Remdesivir. He is overall feeling better. He has mild dyspnea on exertion at baseline. He denies any complaints of orthopnea, PND or edema. Has no chest discomfort or palpitations. Has no dizziness or syncope. Past Medical History Past Medical History: COPD Additional Past Medical History / Comment(s): AAA History of Any Multi-Drug Resistant Organisms: None Reported Past Surgical History: Hernia Repair, Tonsillectomy Additional Past Surgical History / Comment(s): 2019 cardiac stents Past Anesthesia/Blood Transfusion Reactions: No Reported Reaction Past Psychological History: No Psychological Hx Reported Smoking Status: Current every day smoker Past Alcohol Use History: None Reported Past Drug Use History: None Reported Medications and Allergies Home Medications Medication Instructions Recorded Confirmed Type Acetaminophen [Tylenol Arthritis] 650 mg PO DAILY 07/10/23 07/10/23 History Aspirin EC [Ecotrin Low Dose] 81 mg PO DAILY 07/10/23 07/10/23 History Clobetasol Propionate [Temovate 1 applic TOPICAL BID 07/10/23 07/10/23 History 0.05% Cream] Multivit-Mins/Iron/Folic/Lycop 1 tab PO DAILY 07/10/23 07/10/23 History [Centrum Men's Tablet] Naproxen [EC-Naprosyn] 500 mg PO BID 07/10/23 07/10/23 History Allergies Allergy/AdvReac Type Severity Reaction Status Date / Time sulfamethoxazole Allergy Rash/Hives Verified 07/10/23 14:09 [From Bactrim] trimethoprim [From Bactrim] Allergy Rash/Hives Verified 07/10/23 14:09 Physical Exam Vitals: Vital Signs Temp Pulse Resp BP Pulse Ox 07/11/23 12:00 98.4 F 80 19 145/83 96 07/11/23 09:25 96 07/11/23 08:19 98.1 F 104 H 20 137/94 92 L 07/11/23 04:00 79 18 150/97 96 07/10/23 23:35 76 18 141/78 95 07/10/23 20:00 98.2 F 85 18 143/72 95 07/10/23 15:05 97.9 F 99 19 135/99 95 Intake and Output 07/10/23 07/11/23 07/11/23 22:59 06:59 14:59 Intake Total 658 838 Balance 658 838 Intake: Oral 658 838 Other: Voiding Method Toilet Toilet Toilet # Bowel Movements 1 PHYSICAL EXAMINATION: This is a 62-year-old male in no apparent distress at the time of my examination. VITAL SIGNS: Reviewed. HEENT: Head is atraumatic, normocephalic. Pupils are equal, round. Sclerae anicteric. Conjunctivae are clear. Mucous membranes of the mouth are moist. Neck is supple. There is no elevated jugular venous pressure. No carotid bruit is heard. CHEST EXAMINATION: Lungs reveal expiratory wheezing throughout with scattered rhonchi. Respirations even and nonlabored. HEART EXAMINATION: Heart regular, positive S1 and S2. No S3. No S4. No clicks, rubs or murmurs. ABDOMEN: Soft, nontender. Bowel sounds are heard. No organomegaly noted. EXTREMITIES: 2+ peripheral pulses with no evidence of peripheral edema and no calf tenderness noted. NEUROLOGIC EXAMINATION: Patient is awake, alert and oriented x3. Results 07/11/23 08:11 07/11/23 08:11 Cardiac Enzymes 07/10/23 07/10/23 07/11/23 Range/Units 14:23 18:19 08:11 Lactate Dehydrogenase 235 (120-246) U/L Troponin I 0.036 H* 0.025 (0.000-0.034) ng/mL 07/11/23 07/11/23 Range/Units 08:11 10:56 Lactate Dehydrogenase 225 (120-246) U/L Troponin I 0.022 (0.000-0.034) ng/mL CBC 07/11/23 Range/Units 08:11 WBC 9.5 (3.8-10.6) k/uL RBC 4.51 (4.30-5.90) m/uL Hgb 14.5 (13.0-17.5) gm/dL Hct 44.5 (39.0-53.0) % Plt Count 141 L (150-450) k/uL Comprehensive Metabolic Panel 07/11/23 Range/Units 08:11 Sodium 138 (137-145) mmol/L Potassium 4.7 (3.5-5.1) mmol/L Chloride 101 (98-107) mmol/L Carbon Dioxide 30 (22-30) mmol/L BUN 18 (9-20) mg/dL Creatinine 0.60 L (0.66-1.25) mg/dL Glucose 177 H (74-99) mg/dL Calcium 9.0 (8.4-10.2) mg/dL Current Medications Generic Name Dose Route Start Last Admin Trade Name Freq PRN Reason Stop Dose Admin Acetaminophen 650 mg 07/10/23 12:50 Acetaminophen Tab 325 Mg Tab PO Q6HR PRN Mild Pain or Fever > 100.5 Albuterol Sulfate 2 puff 07/10/23 20:00 07/11/23 11:40 Albuterol Hfa Inhaler INHALATION Not Given RT-QID [facility] Ascorbic Acid 1,000 mg 07/11/23 09:00 07/11/23 08:20 Ascorbic Acid 500 Mg Tab PO 1,000 mg DAILY ASHLEY Administration Aspirin 81 mg 07/10/23 23:11 07/11/23 08:21 Aspirin 81 Mg PO 81 mg DAILY ASHLEY Administration Cholecalciferol 50 mcg 07/10/23 12:30 07/11/23 08:21 Cholecalciferol 25 Mcg (1000 Iu) Tablet PO 50 mcg DAILY ASHLEY Administration Famotidine 20 mg 07/10/23 21:00 07/11/23 08:21 Famotidine 20 Mg Tab PO 20 mg Q12HR ASHLEY Administration Heparin Sodium (Porcine) 5,000 unit 07/10/23 21:00 07/11/23 08:21 Heparin Sodium,Porcine 5,000 Unit/Ml 1 Ml Vial SQ 5,000 unit Q12HR ASHLEY Administration Sodium Chloride 1,000 mls @ 75 mls/hr 07/10/23 13:00 07/11/23 05:04 Saline 0.9% IV 75 mls/hr .[id number] ASHLEY Administration Remdesivir 100 mg/ Sodium 250 mls @ 250 mls/hr 07/12/23 13:00 Chloride IVPB 07/15/23 13:59 Q24H ASHLEY Methylprednisolone Sodium Succinate 60 mg 07/10/23 18:00 07/11/23 11:33 Methylprednisolone Sod Succi 125 Mg/2 Ml Vial IV 60 mg Q6HR ASHLEY Administration Naloxone HCl 0.2 mg 07/10/23 12:50 Naloxone 0.4 Mg/Ml 1 Ml Vial IV Q2M PRN Opioid Reversal Nicotine 1 patch 07/10/23 18:15 07/11/23 08:20 Nicotine 14mg/24hr Patch TRANSDERM 1 patch DAILY ASHLEY Administration Zinc Sulfate 220 mg 07/11/23 09:00 07/11/23 08:21 Zinc Sulfate 220 Mg Cap PO 220 mg DAILY ASHLEY Administration Intake and Output 07/10/23 07/11/23 07/11/23 22:59 06:59 14:59 Intake Total 658 838 Balance 658 838 Intake: Oral 658 838 Other: Voiding Method Toilet Toilet Toilet # Bowel Movements 1 07/11/23 08:11 07/11/23 08:11 Assessment and Plan Assessment: #1 COVID #2 minimally elevated troponin, likely secondary to a type II event #3 AAA s/p stenting Plan: From cardiology's perspective we will obtain a 2-D echo with Doppler study to assess cardiac structure and function. We will add a beta amadou. Continue low dose aspirin. Patient will likely require stress testing as an outpatient to rule out underlying ischemia. Further recommendations depending on echocardiogram results. [employer] note has been reviewed, I agree with a documented findings and plan of care. Patient was seen and examined.
[2023-07-11] MEDS: METOPROLOL TARTRATE 25 MG TAB PO SCH (19:50)
[2023-07-11 23:36] LABS: Chol/HDL Ratio 3.09 Ratio; LDL Cholesterol,Calculated 84.8 mg/dL (0.0-131.0); VLDL Calculation 15.96 mg/dL (5.00-40.00)
--- NOTE | 2023-07-11 23:40 | P.PN ---
Subjective This is a pleasant 62 years old male with past medical history of coronary artery disease status post stent in 2019. Presents because of worsening shortness of breath associated with cough and white phlegm over the last few days but no overt chest pain Patient denies also abdominal pain no change in urine or bowel habits. No vomiting. No fever. He smokes without specification and his counseled to quit and he agrees. No illicit drug source alcohol. Labs reviewed rather unremarkable except for mildly elevated troponin. Covid test is positive EKG showing normal sinus rhythm at [address] depression in the lateral limits. Chest x-ray showed COPD changes with bilateral mild infiltrates in the middle and lower zones. Patient is started on IV Solu-Medrol and normal saline. 07/11/2023 Patient sitting in chair mildly dyspneic no chest pain He is saturating well on the ventilator oxygen via nasal cannula in high 90s D-dimer was mildly elevated, CTPA was negative for PE Portcalcitonin is negative, LDH is normal, CRP mildly elevated Most likely patient has COPD exacerbation secondary to Covid infection however patient was started on remdesivir Echocardiogram is pending in the recovery to Covid infection Review of systems CONSTITUTIONAL: No fever, no malaise, no fatigue. HEENT: No recent visual problems or hearing problems. Denied any sore throat. CARDIOVASCULAR: No orthopnea, PND, no palpitations, no syncope. GASTROINTESTINAL: No diarrhea, no nausea, no vomiting, no abdominal pain. Normoactive bowel sounds. NEUROLOGICAL: No headaches, no weakness, no numbness. Active Medications Generic Name Dose Route Start Last Admin Trade Name Freq PRN Reason Stop Dose Admin Acetaminophen 650 mg 07/10/23 12:50 Acetaminophen Tab 325 Mg Tab PO Q6HR PRN Mild Pain or Fever > 100.5 Albuterol Sulfate 2 puff 07/10/23 20:00 07/11/23 20:54 Albuterol Hfa Inhaler INHALATION 2 puff RT-QID ASHLEY Administration Ascorbic Acid 1,000 mg 07/11/23 09:00 07/11/23 08:20 Ascorbic Acid 500 Mg Tab PO 1,000 mg DAILY ASHLEY Administration Aspirin 81 mg 07/10/23 23:11 07/11/23 08:21 Aspirin 81 Mg PO 81 mg DAILY ASHLEY Administration Cholecalciferol 50 mcg 07/10/23 12:30 07/11/23 08:21 Cholecalciferol 25 Mcg (1000 Iu) Tablet PO 50 mcg DAILY ASHLEY Administration Famotidine 20 mg 07/10/23 21:00 07/11/23 19:50 Famotidine 20 Mg Tab PO 20 mg Q12HR ASHLEY Administration Heparin Sodium (Porcine) 5,000 unit 07/10/23 21:00 07/11/23 19:49 Heparin Sodium,Porcine 5,000 Unit/Ml 1 Ml Vial SQ 5,000 unit Q12HR ASHLEY Administration Sodium Chloride 1,000 mls @ 75 mls/hr 07/10/23 13:00 07/11/23 17:19 Saline 0.9% IV Not Given .[id number] ASHLEY Remdesivir 100 mg/ Sodium 250 mls @ 250 mls/hr 07/12/23 13:00 Chloride IVPB 07/15/23 13:59 Q24H ASHLEY Methylprednisolone Sodium Succinate 60 mg 07/10/23 18:00 07/11/23 23:02 Methylprednisolone Sod Succi 125 Mg/2 Ml Vial IV 60 mg Q6HR ASHLEY Administration Metoprolol Tartrate 25 mg 07/11/23 21:00 07/11/23 19:50 Metoprolol Tartrate 25 Mg Tab PO 25 mg BID ASHLEY Administration Naloxone HCl 0.2 mg 07/10/23 12:50 Naloxone 0.4 Mg/Ml 1 Ml Vial IV Q2M PRN Opioid Reversal Nicotine 1 patch 07/10/23 18:15 07/11/23 08:20 Nicotine 14mg/24hr Patch TRANSDERM 1 patch DAILY ASHLEY Administration Zinc Sulfate 220 mg 07/11/23 09:00 07/11/23 08:21 Zinc Sulfate 220 Mg Cap PO 220 mg DAILY ASHLEY Administration Objective - Vital Signs Vital signs: Vital Signs Temp 98.6 F 07/11/23 16:00 Pulse 73 07/11/23 16:00 Resp 19 07/11/23 16:00 BP 129/71 07/11/23 16:00 Pulse Ox 92 L 07/11/23 16:00 FiO2 Intake & Output 07/11/23 07/11/23 07/12/23 06:59 18:59 06:59 Intake Total 1196 Balance 1196 Intake: Oral 1196 Other: Voiding Method Toilet Toilet # Bowel Movements 1 - Exam GENERAL: The patient is alert and oriented x3, not in any acute distress. Well developed, well nourished. HEENT: Pupils are round and equally reacting to light. EOMI. No scleral icterus. No conjunctival pallor. Normocephalic, atraumatic. No pharyngeal erythema. No thyromegaly. CARDIOVASCULAR: S1 and S2 present. No murmurs, rubs, or gallops. -PULMONARY: Chest is clear to auscultation, no wheezing , Mild tachypnea with bilateral scattered crepitation ABDOMEN: Soft, nontender, nondistended, normoactive bowel sounds. No palpable organomegaly. MUSCULOSKELETAL: No joint swelling or deformity. EXTREMITIES: No cyanosis, clubbing, or pedal edema. NEUROLOGICAL: Gross neurological examination did not reveal any focal deficits. SKIN: No rashes. no petechiae. - Labs CBC & Chem 7: 07/11/23 08:11 07/11/23 08:11 Labs: Abnormal Lab Results - Last 24 Hours (Table) 07/11/23 07/11/23 07/11/23 Range/Units 08:11 08:11 10:56 Plt Count 141 L (150-450) k/uL Neutrophils # 8.9 H (1.3-7.7) k/uL Lymphocytes # 0.3 L (1.0-4.8) k/uL D-Dimer 1.58 H (<0.60) mg/L FEU Creatinine 0.60 L (0.66-1.25) mg/dL Glucose 177 H (74-99) mg/dL C-Reactive Protein 6.3 H (<1.0) mg/dL Assessment and Plan Assessment: Acute Covid infection Acute COPD exacerbation Mildly elevated troponin most likely secondary to Covid infection, rule out cardiac causes Pertinent dependence History of coronary artery disease status post stenting Obesity with BMI of 30 4. Plan: Continue with IV Solu-Medrol on remdesivir A bronchodilator Vitamin D C and zinc. Pulmonary consult Continue with aspirin Cardiology consult Check echocardiogram Labs and medication were reviewed.. Continue same treatment. Continue with symptomatic treatment. Resume home medication. Monitor labs and vitals. DVT and GI prophylaxis. Further recommendations as per clinical course of the patient DVT prophylaxis: Subcutaneous heparin GI Prophylaxis: Pepcid PT/OT: Pending Prognosis is guarded
[2023-07-12] MEDS: SODIUM CHLORIDE 0.9% 1,000 ML IV SCH ×2 (05:10→22:19)
[2023-07-12] MEDS: methylPREDNISolone SOD SUCCI 125 MG/2 ML VIAL IV SCH ×4 (06:10→23:36)
[2023-07-12] MEDS: ZINC SULFATE 220 MG CAP PO SCH (08:23)
[2023-07-12] MEDS: ASPIRIN 81 MG PO SCH (08:23)
[2023-07-12] MEDS: HEPARIN SODIUM,PORCINE 5,000 UNIT/ML 1 ML VIAL SQ SCH ×2 (08:23→22:19)
[2023-07-12] MEDS: NICOTINE 14MG/24HR PATCH TRANSDERM SCH (08:23)
[2023-07-12] MEDS: CHOLECALCIFEROL 25 MCG (1000 IU) TABLET PO SCH (08:23)
[2023-07-12] MEDS: ASCORBIC ACID 500 MG TAB PO SCH (08:23)
[2023-07-12] MEDS: METOPROLOL TARTRATE 25 MG TAB PO SCH ×2 (08:24→22:19)
[2023-07-12] MEDS: FAMOTIDINE 20 MG TAB PO SCH ×2 (08:24→22:18)
[2023-07-12] MEDS: ALBUTEROL HFA INHALER INHALATION SCH ×4 (08:33→21:26)
[2023-07-12] MEDS: REMDESIVIR 100 MG in SODIUM CHLORIDE 0.9% 250 ML IVPB SCH (12:07)
--- NOTE | 2023-07-12 13:16 | P.PN ---
Subjective HISTORY OF PRESENT ILLNESS: This is a pleasant 62-year-old gentleman with history of abdominal aortic aneurysm, status post stenting, follows with CV surgeon out of [place]. He has history of hypertension, hyperlipidemia, diabetes or CAD. He has a history of smoking about 15 cigarettes a day for over 40 years. Initially presented to urgent care with cough and shortness of breath. He was found to be positive for cold blood and oxygen saturation was low 80s. We were asked to the patient in consultation for troponin elevation which came back as 0.045, 0.036, 0.025 0.022. Denies any complaints of chest discomfort. EKG showed sinus mechanism with diffuse ST-T wave abnormalities with no EKGs to compare. Blood pressure has been on the high side. Heart rate has been in the 90s. He is being followed by pulmonary. He's been Initiated on Solu-Medrol and Remdesivir. He is overall feeling better. He has mild dyspnea on exertion at baseline. He denies any complaints of orthopnea, PND or edema. Has no chest discomfort or palpitations. Has no dizziness or syncope. 07/12/2023 Patient examined this morning at the bedside. Patient denies any chest pain or pressure. He denies shortness of breath. Vital signs are stable. 2-D echo is currently pending. PHYSICAL EXAM: VITAL SIGNS: Reviewed. GENERAL: Well-developed in no acute distress. NECK: Supple. No JVD or thyromegaly LUNGS: Respirations even and unlabored. Lungs essentially clear to auscultation bilaterally. HEART: Regular rate and rhythm. S1 and S2 heard. EXTREMITIES: Normal range of motion. No clubbing or cyanosis. Peripheral pulses intact. No lower extremity edema ASSESSMENT: Acute Covid 19 Abnormal troponins, likely secondary to above, no evidence of acute coronary syndrome AAA with previous stenting PLAN: 2-D echo has been ordered. Await results Continue current cardiac medications Recommend outpatient stress testing If 2-D echo does not reveal any significant abnormalities, we will sign off and patient may follow up post discharge in the office Nurse practitioner note has been reviewed by physician. Signing provider agrees with the documented findings, assessment, and plan of care. Objective - Vital Signs Vital signs: Vital Signs Temp 98.5 F 07/12/23 08:20 Pulse 76 07/12/23 08:20 Resp 19 07/12/23 08:20 BP 129/85 12/11/23 08:20 Pulse Ox 97 07/12/23 08:33 FiO2 Intake & Output 07/11/23 07/12/23 07/12/23 18:59 06:59 18:59 Intake Total 1196 10 358 Balance 1196 10 358 Intake: IV 10 0.9 10 Oral 1196 358 Other: Voiding Method Toilet Toilet # Voids 1 - Labs CBC & Chem 7: 07/11/23 08:11 07/11/23 08:11 Labs: Abnormal Lab Results - Last 24 Hours (Table) 07/11/23 07/11/23 07/11/23 Range/Units 08:11 08:11 10:56 Plt Count 141 L (150-450) k/uL Neutrophils # 8.9 H (1.3-7.7) k/uL Lymphocytes # 0.3 L (1.0-4.8) k/uL D-Dimer 1.58 H (<0.60) mg/L FEU Creatinine 0.60 L (0.66-1.25) mg/dL Glucose 177 H (74-99) mg/dL C-Reactive Protein 6.3 H (<1.0) mg/dL Microbiology - Last 24 Hours (Table) 07/10/23 10:55 Blood Culture - Preliminary Blood 07/10/23 10:50 Blood Culture - Preliminary Blood
--- NOTE | 2023-07-12 14:44 | CDI ---
Documentation Clarification Form Date: 07/12/2023 01:31:14 PM From: Jasmina Coker RN, CCDS Email: [email or web address] Admit Date: 07/10/2023 12:50:00 PM Patient Name: Jose Manuel Upton Visit Number: [id number] Discharge Date: ATTENTION: The Clinical Documentation Specialists (CDI) and [facility] Coding Staff appreciate your assistance in clarifying documentation. Please respond to the clarification below the line at the bottom and electronically sign. The CDI & [facility] Coding staff will review the response and follow-up if needed. Please note: Queries are made part of the Legal Health Record. If you have any questions, please contact the author of this message via ITS. Dr. Shira Cooney "Type II event" is documented and the patient has elevated troponin levels. Please clarify if there is an additional diagnosis and/or clinical significance related to this value. Patient history/risk factors: CAD with stents, smoker and COPD. Presented with SOB and cough. Admitted with acute Covid infection. Clinical indicators: H&P: "Mildly elevated troponin most likely secondary to Covid infection, rule out cardiac causes." 07/11 Cardiology consult: "minimally elevated troponin, likely secondary to a type II event." 07/11 Pulmonary: "Troponins are 0.03 and down trending." 07/11 IM: "Mildly elevated troponin most likely secondary to Covid infection, rule out cardiac causes." 07/10-07/11 Troponins: 0.045-0.036-0.025-0.022 Treatment: 0.9 NS @75mL/hr 07/10-07/12; Zinc sulfate 220mg po daily 07/11- current; Remdesivir 200mg IV x1 on 07/11; Remdesivir 100mg IV Q24 07/12-current; IV Solumedrol 60mg Q6H 07/10-07/12 Is there an additional diagnosis and/or clinical significance related to the above lab result/information: [ xx ] Type 2 NC due to Covid infection [ ] No additional diagnosis/Not clinically significant [ ] Other, please specify [ ] Unable to determine MTDD
--- NOTE | 2023-07-12 15:24 | P.PN ---
Subjective Progress Note Date: 07/12/23 Principal diagnosis: Acute COVID-19 infection, possible COVID-19 pneumonia This is a 62-year-old male patient was being seen for a Covid 19 infection. The patient tested positive for Covid 19 yesterday. Started getting sick and his symptoms started approximately 4 days ago. He is an ex-smoker. Probably COPD at baseline although this hasn't been officially diagnosed. Does not utilize any form of respiratory medications or inhalers. He had increased cough and congestion and chest tightness and wheezing and he ended up coming into the hospital, found hypoxic and currently is on oxygen by nasal cannula and is maintained on 2 L. Chest x-ray showed COPD with patchy interstitial infiltrates in the mid and lower lung arrington bilaterally. No previous history of DVT or p ulmonary embolism. No previous history of Covid 19 infection. The patient has had the original series of vaccination for Covid 19. No infections in the past. White cell count is at 9.5, and was 14, platelet count of 141. BUN is at 80 with a creatinine of 0.6. D-dimer is at 1.58. Sodium is at 138. Troponins are 0.03 and down trending and the LDH level is at 235. No altered mentation. No g astrointestinal symptoms. Reevaluated today on 07/12/23, a she is on 2 L nasal cannula, O2 sats is 96%, feeling much better, breathing a lot easier. Patient is receiving Remdesivir, and he seems to be tolerating that quite well. He is also on steroids/methylprednisolone, and on multivitamins. Again patient is doing great, relatively asymptomatic today. CT angiogram of the chest showed minimal and she bibasilar densities, possible acute atypical/COVID-19 pneumonia clinically the patient is doing well. WBC count is 9.5 hemoglobin 14.5 d-dimer is 1.[address] angiogram showed no evidence of pulmonary embolism Objective - Vital Signs Vital signs: Vital Signs Temp 98.1 F 07/12/23 12:00 Pulse 70 07/12/23 12:00 Resp 18 07/12/23 12:00 BP 121/80 07/12/23 12:00 Pulse Ox 96 07/12/23 12:00 FiO2 Intake & Output 07/11/23 07/12/23 07/12/23 18:59 06:59 18:59 Intake Total 1196 10 1356 Balance 1196 10 1356 Intake: IV 10 0.9 10 Oral 1196 1356 Other: Voiding Method Toilet Toilet Toilet # Voids 1 - Exam Physical Exam Revealed a 62-year-old white male in no distress HEENT::No neck masses.] [No thyromegaly.] [No JVD.] Chest: [Clear throughout, no crackles, no rhonchi, no wheezes.] Cardiac Exam: [Normal S1 and S2, no S3 gallop, no murmur.] Abdomen: [Soft, nontender, no megaly, no rebound, no guarding, normal bowel sounds.] Extremities: [No clubbing, no edema, no cyanosis.] Neurological Exam: [No focal neurologic deficit.] Alert and oriented 3 Psychiatric: Normal mood affect and normal mental status. Skin: No rashes - Labs CBC & Chem 7: 07/11/23 08:11 07/11/23 08:11 Labs: Microbiology - Last 24 Hours (Table) 07/10/23 10:55 Blood Culture - Preliminary Blood 07/10/23 10:50 Blood Culture - Preliminary Blood Assessment and Plan Assessment: Impression: Acute COVID-19 infection/suspect possible COVID-19 pneumonia Acute exacerbation of COPD Elevated d-dimer but no evidence of pulmonary embolism History of abdominal aortic aneurysm and previous endovascular stent grafting Recommendation: Continue Remdesivir Continue oxygen and titrate accordingly Continue IV Solu-Medrol Continue vitamin C and zinc Continue bronchodilators/Ventolin Possible discharge planning in the next 24-48 hours We will continue to follow Time with Patient: Less than 30
--- NOTE | 2023-07-12 20:45 | P.PN ---
Subjective This is a pleasant 62 years old male with past medical history of coronary artery disease status post stent in 2019. Presents because of worsening shortness of breath associated with cough and white phlegm over the last few days but no overt chest pain Patient denies also abdominal pain no change in urine or bowel habits. No vomiting. No fever. He smokes without specification and his counseled to quit and he agrees. No illicit drug source alcohol. Labs reviewed rather unremarkable except for mildly elevated troponin. Covid test is positive EKG showing normal sinus rhythm at [address] depression in the lateral limits. Chest x-ray showed COPD changes with bilateral mild infiltrates in the middle and lower zones. Patient is started on IV Solu-Medrol and normal saline. 07/11/2023 Patient sitting in chair mildly dyspneic no chest pain He is saturating well on the ventilator oxygen via nasal cannula in high 90s D-dimer was mildly elevated, CTPA was negative for PE Portcalcitonin is negative, LDH is normal, CRP mildly elevated Most likely patient has COPD exacerbation secondary to Covid infection however patient was started on remdesivir Echocardiogram is pending in the recovery to Covid infection 07/12/2023 Patient improving slowly and gradually, he is currently on room air. He's have some mild coughing. He remains on remdesivir Social alternatives on IV Solu-Medrol 60 mg, vitamin D C and zinc and normal and 60 mL/h He may be considered for discharge and 24-48 hours was cleared by pulmonary service and if he keeps improving Accounting Generalist recommended outpatient stress test Objective - Vital Signs Vital signs: Vital Signs Temp 98.5 F 07/12/23 15:25 Pulse 85 07/12/23 15:25 Resp 19 07/12/23 15:25 BP 142/89 07/12/23 15:25 Pulse Ox 91 L 07/12/23 15:25 FiO2 Intake & Output 07/11/23 07/12/23 07/12/23 18:59 06:59 18:59 Intake Total 1196 10 1356 Balance 1196 10 1356 Intake: IV 10 0.9 10 Oral 1196 1356 Other: Voiding Method Toilet Toilet Toilet # Voids 1 - Exam GENERAL: The patient is alert and oriented x3, not in any acute distress. Well developed, well nourished. HEENT: Pupils are round and equally reacting to light. EOMI. No scleral icterus. No conjunctival pallor. Normocephalic, atraumatic. No pharyngeal erythema. No thyromegaly. CARDIOVASCULAR: S1 and S2 present. No murmurs, rubs, or gallops. -PULMONARY: Chest is clear to auscultation, no wheezing , Mild tachypnea with bilateral scattered crepitation ABDOMEN: Soft, nontender, nondistended, normoactive bowel sounds. No palpable organomegaly. MUSCULOSKELETAL: No joint swelling or deformity. EXTREMITIES: No cyanosis, clubbing, or pedal edema. NEUROLOGICAL: Gross neurological examination did not reveal any focal deficits. SKIN: No rashes. no petechiae. - Labs CBC & Chem 7: 07/11/23 08:11 07/11/23 08:11 Labs: Microbiology - Last 24 Hours (Table) 07/10/23 10:55 Blood Culture - Preliminary Blood 07/10/23 10:50 Blood Culture - Preliminary Blood Assessment and Plan Assessment: Acute Covid infection Acute COPD exacerbation Mildly elevated troponin most likely secondary to Covid infection, rule out cardiac causes Pertinent dependence History of coronary artery disease status post stenting Obesity with BMI of 30 4. Plan: Continue with IV Solu-Medrol on remdesivir A bronchodilator Vitamin D C and zinc. Pulmonary consult Continue with aspirin Cardiology consult Check echocardiogram Labs and medication were reviewed.. Continue same treatment. Continue with symptomatic treatment. Resume home medication. Monitor labs and vitals. DVT and GI prophylaxis. Further recommendations as per clinical course of the patient DVT prophylaxis: Subcutaneous heparin GI Prophylaxis: Pepcid PT/OT: Pending Prognosis is guarded
[2023-07-13] MEDS: methylPREDNISolone SOD SUCCI 125 MG/2 ML VIAL IV SCH ×2 (06:58→13:34)
--- NOTE | 2023-07-13 07:35 | CA ---
Transthoracic Echo Report Name: Jose Manuel Upton Age: 62 Gender: M : 1960 Exam Date: 07/12/2023 10:22 Exam Location: [place] [facility] Ht (in): 72 Wt (lb): 252 Ordering Physician: Varinder Randle MD Attending/Referring Phys: [id number], Jer Architecture Instructor Corrine Reddy [facility] Procedure CPT: Indications: Rule out heart disease Cardiac Hx: Technical Quality: Technically difficult study Contrast 1: Definity Total Dose (mL): 8 Contrast 2: Total Dose (mL): MEASUREMENTS (Male / Female) Normal Values 2D ECHO LV Diastolic Diameter PLAX 5.8 cm 4.2 - 5.9 / 3.9 - 5.3 cm LV Systolic Diameter PLAX 4.6 cm IVS Diastolic Thickness 1.1 cm 0.6 - 1.0 / 0.6 - 0.9 cm LVPW Diastolic Thickness 1.2 cm 0.6 - 1.0 / 0.6 - 0.9 cm LV Relative Wall Thickness 0.4 DOPPLER AV Peak Velocity 150.8 cm/s AV Peak Gradient 9.1 mmHg AV Mean Velocity 112.8 cm/s AV Mean Gradient 5.5 mmHg AV Velocity Time Integral 30.2 cm LVOT Peak Velocity 109.8 cm/s LVOT Peak Gradient 4.8 mmHg LVOT Velocity Time Integral 21.2 cm Mitral E Point Velocity 57.6 cm/s Mitral A Point Velocity 93.4 cm/s Mitral E to A Ratio 0.6 MV Deceleration Time 261.8 ms LV E' Lateral Velocity 6.3 cm/s Mitral E to LV E' Lateral Ratio 9.1 LV E' Septal Velocity 5.8 cm/s Mitral E to LV E' Septal Ratio 9.9 TR Peak Velocity 310.5 cm/s TR Peak Gradient 38.6 mmHg Right Atrial Pressure 8.0 mmHg Pulmonary Artery Systolic Pressu 46.6 mmHg Right Ventricular Systolic Press 46.6 mmHg FINDINGS Left Ventricle Moderate concentric LVH. Mildly dilated left ventricular cavity. Severely reduced global LV systolic. Left ventricular ejection fraction is estimated at 30-35%. Mid to distal anterolateral wall and anteroapical wall hypokinesia. Right Ventricle Moderate right ventricular dilatation. Moderate pulmonary hypertension. Right Atrium Left Atrium Mitral Valve Structurally normal mitral valve. No mitral regurgitation. Aortic Valve No aortic stenosis. Trace aortic regurgitation. Tricuspid Valve Structurally normal tricuspid valve. Trace to mild tricuspid regurgitation. Pulmonic Valve Pericardium No pericardial effusion Aorta CONCLUSIONS COVID+ limited echo Mildly dilated LV cavity. Moderate concentric LVH Severely reduced global LV systolic function. EF 30-35% Mid to distal anterolateral wall and anteroapical wall hypokinesia No pericardial effusion RVSP estimated at 38 mmHg No prior echo to compare within database Previewed by: Dr Michele Beltre (Electronically Signed) Final Date: 13 July 2023 07:35
[2023-07-13] MEDS: ALBUTEROL HFA INHALER INHALATION SCH ×2 (08:21→11:41)
[2023-07-13] MEDS: ASPIRIN 81 MG PO SCH (10:14)
[2023-07-13] MEDS: HEPARIN SODIUM,PORCINE 5,000 UNIT/ML 1 ML VIAL SQ SCH (10:14)
[2023-07-13] MEDS: METOPROLOL TARTRATE 25 MG TAB PO SCH (10:14)
[2023-07-13] MEDS: NICOTINE 14MG/24HR PATCH TRANSDERM SCH (10:14)
[2023-07-13] MEDS: ZINC SULFATE 220 MG CAP PO SCH (10:14)
[2023-07-13] MEDS: ASCORBIC ACID 500 MG TAB PO SCH (10:14)
[2023-07-13] MEDS: CHOLECALCIFEROL 25 MCG (1000 IU) TABLET PO SCH (10:14)
[2023-07-13] MEDS: FAMOTIDINE 20 MG TAB PO SCH (10:14)
[2023-07-13 12:21] VITALS: RESP 22
[2023-07-13] MEDS ORDERED: LOSARTAN 25 MG TAB PO SCH (12:30)
[2023-07-13] MEDS: SODIUM CHLORIDE 0.9% 1,000 ML IV SCH (13:23)
[2023-07-13] MEDS: REMDESIVIR 100 MG in SODIUM CHLORIDE 0.9% 250 ML IVPB SCH (13:35)
--- NOTE | 2023-07-13 13:37 | P.PN ---
Subjective HISTORY OF PRESENT ILLNESS: This is a pleasant 62-year-old gentleman with history of abdominal aortic aneurysm, status post stenting, follows with CV surgeon out of [place]. He has history of hypertension, hyperlipidemia, diabetes or CAD. He has a history of smoking about 15 cigarettes a day for over 40 years. Initially presented to urgent care with cough and shortness of breath. He was found to be positive for cold blood and oxygen saturation was low 80s. We were asked to the patient in consultation for troponin elevation which came back as 0.045, 0.036, 0.025 0.022. Denies any complaints of chest discomfort. EKG showed sinus mechanism with diffuse ST-T wave abnormalities with no EKGs to compare. Blood pressure has been on the high side. Heart rate has been in the 90s. He is being followed by pulmonary. He's been Initiated on Solu-Medrol and Remdesivir. He is overall feeling better. He has mild dyspnea on exertion at baseline. He denies any complaints of orthopnea, PND or edema. Has no chest discomfort or palpitations. Has no dizziness or syncope. 07/12/2023 Patient examined this morning at the bedside. Patient denies any chest pain or pressure. He denies shortness of breath. Vital signs are stable. 2-D echo is currently pending. 07/13/2023 Patient examined this morning at the bedside. He is sitting up in the chair. He denies chest pain or pressure. Denies SOB. Vital signs are stable. Echocardiogram completed revealing ejection fraction 30-35% with mid to distal anterior lateral wall and anterior apical wall hypokinesia, moderate pulmonary hypertension, and mild tricuspid regurgitation. PHYSICAL EXAM: VITAL SIGNS: Reviewed. GENERAL: Well-developed in no acute distress. NECK: Supple. No JVD or thyromegaly LUNGS: Respirations even and unlabored. Lungs essentially clear to auscultation bilaterally. HEART: Regular rate and rhythm. S1 and S2 heard. EXTREMITIES: Normal range of motion. No clubbing or cyanosis. Peripheral pul ses intact. No lower extremity edema ASSESSMENT: Acute Covid 19 Abnormal troponins, likely secondary to above, no evidence of acute coronary syndrome AAA with previous stenting Cardiomyopathy, ejection fraction 30-35%, ischemic versus nonischemic, suspect Takotsubo PLAN: Continue current cardiac medications Add losartan 25 mg daily Continue metoprolol and aspirin Patient to follow-up post discharge in the office regarding cardiomyopathy and further ischemic workup Stable for discharge home today from a cardiac standpoint We will sign off. Please reconsult if needed. Nurse practitioner note has been reviewed by physician. Signing provider agrees with the documented findings, assessment, and plan of care. Objective - Vital Signs Vital signs: Vital Signs Temp 97.9 F 07/13/23 04:00 Pulse 64 07/13/23 04:00 Resp 18 07/13/23 04:00 BP 142/90 07/13/23 04:00 Pulse Ox 92 L 07/13/23 08:22 FiO2 Intake & Output 07/12/23 07/13/23 07/13/23 18:59 06:59 18:59 Intake Total 1896 Balance 1896 Intake: Oral 1896 Other: Voiding Method Toilet Toilet # Voids 2 1 - Labs CBC & Chem 7: 07/11/23 08:11 07/11/23 08:11 Labs: Microbiology - Last 24 Hours (Table) 07/10/23 10:55 Blood Culture - Preliminary Blood 07/10/23 10:50 Blood Culture - Preliminary Blood
[2023-07-13 14:01] VITALS: BP 129/75; PULSE 67; TEMP 98.9
--- NOTE | 2023-07-13 14:39 | P.PN ---
Subjective Progress Note Date: 07/13/23 Principal diagnosis: Acute COVID-19 infection, possible COVID-19 pneumonia This is a 62-year-old male patient was being seen for a Covid 19 infection. The patient tested positive for Covid 19 yesterday. Started getting sick and his symptoms started approximately 4 days ago. He is an ex-smoker. Probably COPD at baseline although this hasn't been officially diagnosed. Does not utilize any form of respiratory medications or inhalers. He had increased cough and congestion and chest tightness and wheezing and he ended up coming into the hospital, found hypoxic and currently is on oxygen by nasal cannula and is maintained on 2 L. Chest x-ray showed COPD with patchy interstitial infiltrates in the mid and lower lung arrington bilaterally. No previous history of DVT or p ulmonary embolism. No previous history of Covid 19 infection. The patient has had the original series of vaccination for Covid 19. No infections in the past. White cell count is at 9.5, and was 14, platelet count of 141. BUN is at 80 with a creatinine of 0.6. D-dimer is at 1.58. Sodium is at 138. Troponins are 0.03 and down trending and the LDH level is at 235. No altered mentation. No g astrointestinal symptoms. Reevaluated today on 07/12/23, a she is on 2 L nasal cannula, O2 sats is 96%, feeling much better, breathing a lot easier. Patient is receiving Remdesivir, and he seems to be tolerating that quite well. He is also on steroids/methylprednisolone, and on multivitamins. Again patient is doing great, relatively asymptomatic today. CT angiogram of the chest showed minimal and she bibasilar densities, possible acute atypical/COVID-19 pneumonia clinically the patient is doing well. WBC count is 9.5 hemoglobin 14.5 d-dimer is 1.[address] angiogram showed no evidence of pulmonary embolism Patient was reevaluated today on 07/13/2023, patient is doing well, relatively asymptomatic, continues to respond well to Remdesivir. And he is also on steroids/methylprednisolone. Patient is afebrile, vital signs are stable, denies any shortness of breath cough or wheezing. Reviewed the CT angiogram on admission showing minimal a slurred densities, possible atypical pneumonia. This could be related to COVID-19 infection, the findings are nonspecific. There was no evidence of pulmonary embolism. Objective - Vital Signs Vital signs: Vital Signs Temp 98.9 F 07/13/23 12:00 Pulse 67 07/13/23 13:49 Resp 22 07/13/23 08:00 BP 129/75 07/13/23 12:00 Pulse Ox 94 L 07/13/23 13:49 FiO2 Intake & Output 07/12/23 07/13/23 07/13/23 18:59 06:59 18:59 Intake Total 1896 368 Balance 1896 368 Intake: IV 10 Invasive Line 1 10 Oral 1896 358 Other: Voiding Method Toilet Toilet Toilet # Voids 2 1 - Exam Physical Exam Revealed a 62-year-old white male in no distress HEENT::No neck masses.] [No thyromegaly.] [No JVD.] Chest: [Clear throughout, no crackles, no rhonchi, no wheezes.] Cardiac Exam: [Normal S1 and S2, no S3 gallop, no murmur.] Abdomen: [Soft, nontender, no megaly, no rebound, no guarding, normal bowel sounds.] Extremities: [No clubbing, no edema, no cyanosis.] Neurological Exam: [No focal neurologic deficit.] Alert and oriented 3 Psychiatric: Normal mood affect and normal mental status. Skin: No rashes - Labs CBC & Chem 7: 07/11/23 08:11 07/11/23 08:11 Labs: Microbiology - Last 24 Hours (Table) 07/10/23 10:55 Blood Culture - Preliminary Blood 07/10/23 10:50 Blood Culture - Preliminary Blood Assessment and Plan Assessment: Impression: Acute COVID-19 infection/ possible COVID-19 pneumonia Acute exacerbation of COPD Elevated d-dimer but no evidence of pulmonary embolism History of abdominal aortic aneurysm and previous endovascular stent grafting Recommendation: Continue Remdesivir Continue oxygen and titrate accordingly Transition Solu-Medrol to Decadron oral Continue vitamin C and zinc Continue bronchodilators/Ventolin Consider discharge planning after his dose of Remdesivir today Time with Patient: Less than 30
[2023-07-13] MEDS ORDERED: dexAMETHasone 2 MG TAB PO SCH (14:45)
--- NOTE | 2023-07-14 07:48 | P.DS ---
Providers Date of admission: 07/10/23 12:50 Attending physician: Varinder Randle MD Consults: 07/10/23 12:50 Consult Physician Routine Consulting Provider: Carrol Bergeron Consult Reason/Comments: Covid, COPD Do you want consulting provider notified?: Yes Consult Physician Routine Consulting Provider: Ady Lake Consult Reason/Comments: COVID, pos trop Do you want consulting provider notified?: Yes Primary care physician: Alessandro Abebe Hospital Course: Diagnoses: Acute Covid infection Acute COPD exacerbation Mildly elevated troponin most likely secondary to Covid infection, cardiac cause s ruled out and cardiology team signed off the case Pertinent dependence History of coronary artery disease status post stenting Obesity with BMI of 30 4. Hospital course: This is a pleasant 62 years old male with past medical history of coronary artery disease status post stent in 2019. Presents because of worsening shortness of breath associated with cough and white phlegm over the last few days but no overt chest pain Patient was found to have acute COPD exacerbation associated and could be secondary to Covid infection with no evidence of pneumonia, he received treatment with Solu-Medrol, normal saline multiple vitamins vitamin C, vitamin D and zinc as well as Remdesivir. Patient showed interval improvement and he remains on room air, on discharge he does not qualify for home oxygen. Today he has been cleared for discharge by pulmonary team with recommendation to continue with dexamethasone for one week upon discharge. Patient denies any other complaints and he agrees to go home today. Problems and management plan were discussed with the patient and he verbalized understanding and acceptance Patient was found stable and can be discharged home in guarded prognosis however he needs follow-up as an outpatient. Patient was instructed to follow up with PCP Dr. Abebe within one week and patient agrees Patient was instructed to follow up with Dr. Werner in 3 weeks after discharge and he agrees Physical exam Gen: patient is a AAOx3, no distress CVS: S1-S2, RRR, no murmur Lungs: B/L CTA, no wheezing Abdomen: soft, no distention, no tenderness, positive bowel sounds Extremity: no leg edema or induration Time spent more than 35 minutes Patient Condition at Discharge: Stable Plan - Discharge Summary New Discharge Prescriptions: New dexAMETHasone [Decadron] 6 mg PO DAILY 7 Days #7 tablet Albuterol Inhaler [Ventolin Hfa Inhaler] 2 puff INHALATION RT-QID #1 each Ascorbic Acid [Vitamin C] 1,000 mg PO DAILY 30 Days #60 tab Cholecalciferol [Vitamin D3 (25 Mcg = 1000 Iu)] 50 mcg PO DAILY 30 Days #60 tab Nicotine 14Mg/24Hr Patch [Habitrol] 1 patch TRANSDERM DAILY #7 patch Metoprolol Tartrate [Lopressor] 25 mg PO BID #60 tab Zinc Sulfate [Orazinc] 220 mg PO DAILY #30 cap Famotidine [Pepcid] 20 mg PO Q12HR #60 tab Losartan [Cozaar] 25 mg PO DAILY #90 tab Continue Acetaminophen [Tylenol Arthritis] 650 mg PO DAILY Clobetasol Propionate [Temovate 0.05% Cream] 1 applic TOPICAL BID Aspirin EC [Ecotrin Low Dose] 81 mg PO DAILY Multivit-Mins/Iron/Folic/Lycop [Centrum Men's Tablet] 1 tab PO DAILY Discontinued Naproxen [EC-Naprosyn] 500 mg PO BID Discharge Medication List Acetaminophen [Tylenol Arthritis] 650 mg PO DAILY 07/10/23 [History] Aspirin EC [Ecotrin Low Dose] 81 mg PO DAILY 07/10/23 [History] Clobetasol Propionate [Temovate 0.05% Cream] 1 applic TOPICAL BID 07/10/23 [History] Multivit-Mins/Iron/Folic/Lycop [Centrum Men's Tablet] 1 tab PO DAILY 07/10/23 [History] Albuterol Inhaler [Ventolin Hfa Inhaler] 2 puff INHALATION RT-QID #1 each 07/13/23 [Rx] Ascorbic Acid [Vitamin C] 1,000 mg PO DAILY 30 Days #60 tab 07/13/23 [Rx] Cholecalciferol [Vitamin D3 (25 Mcg = 1000 Iu)] 50 mcg PO DAILY 30 Days #60 tab 07/13/23 [Rx] Famotidine [Pepcid] 20 mg PO Q12HR #60 tab 07/13/23 [Rx] Losartan [Cozaar] 25 mg PO DAILY #90 tab 07/13/23 [Rx] Metoprolol Tartrate [Lopressor] 25 mg PO BID #60 tab 07/13/23 [Rx] Nicotine 14Mg/24Hr Patch [Habitrol] 1 patch TRANSDERM DAILY #7 patch 07/13/23 [Rx] Zinc Sulfate [Orazinc] 220 mg PO DAILY #30 cap 07/13/23 [Rx] dexAMETHasone [Decadron] 6 mg PO DAILY 7 Days #7 tablet 07/13/23 [Rx] Follow up Appointment(s)/Referral(s): Alessandro Abebe MD [Primary Care Provider] - 07/14/23 3:30 pm Ady Lake MD [STAFF PHYSICIAN] - 1 Week (we recommend outpatient stress testing. office will call and make follow-up appointment ) Carrol Bergeron MD [STAFF PHYSICIAN] - 08/06/23 1:00 pm Patient Instructions/Handouts: COPD (Chronic Obstructive Pulmonary Disease) (DC), COVID-19 (Coronavirus Disease 2019) (DC) Activity/Diet/Wound Care/Special Instructions: heart healthy diet activity is restricted till you see your doctor Discharge Disposition: HOME SELF-CARE
== END 2023-07-13 15:14 | disposition home or self-care (01) | DRG 177 ==
LOC: EC 10:27 → 3SCARD 12:50
PROVIDERS: ADMIT Internal Medicine; ATTEND Internal Medicine
PROC: XW033E5 Introduction of Remdesivir Anti-infective into Peripheral Vein, Percutaneous Approach, New Technology Group 5 (ICD-10-PCS; principal; 2023-07-10)
DX: U07.1 COVID-19 (principal); I21.A1 Myocardial infarction type 2; J12.82 Pneumonia due to coronavirus disease 2019; J44.0 Chronic obstructive pulmonary disease with (acute) lower respiratory infection; J44.1 Chronic obstructive pulmonary disease with (acute) exacerbation; E78.5 Hyperlipidemia, unspecified; I10 Essential (primary) hypertension; I25.10 Atherosclerotic heart disease of native coronary artery without angina pectoris; I71.40 Abdominal aortic aneurysm, without rupture, unspecified; Z95.5 Presence of coronary angioplasty implant and graft; Z86.79 Personal history of other diseases of the circulatory system; Z79.82 Long term (current) use of aspirin; Z71.6 Tobacco abuse counseling
CPT/HCPCS: 36415; 71046; 71275; 80048; 80053; 80061; 83605; 83615; 84145; 84484; 85025; 85379; 85610; 85730; 86140; 87040; 87635; 93005; 93308; 94640; 94760; 96374; 99285

== ENCOUNTER → 2023-08-06 | Outpatient (CLI) | payer BC ==
[2023-08-06 16:13] LABS: African American GFR (CKD) >90 (>60 ml/min/1.73 sqM); Blood Urea Nitrogen 15 mg/dL (9-20); Non-African American GFR(CKD) >90 (>60 ml/min/1.73 sqM)
--- NOTE | 2023-08-06 17:18 | CT ---
EXAMINATION TYPE: CT angio chest CT DLP: 514.4 mGycm, Automated exposure control for dose reduction was used. DATE OF EXAM: 08/06/2023 4:48 PM COMPARISON: 07/11/2023. CLINICAL INDICATION:Male, 63 years old with history of R06.02 SHORTNESS OF BREATH; SOB post covid TECHNIQUE/CONTRAST: CTA scan of the thorax is performed with IV Contrast, patient injected with 100 mL of Isovue 300, MIP images are created and reviewed these are created on a separate workstation.. FINDINGS: Pulmonary Artery: There is no evidence for a filling defect within the pulmonary vasculature to sugge st acute pulmonary embolism. The pulmonary artery is at the upper limits of normal at 32 mm Lungs/Pleura: Paraseptal emphysema changes are seen throughout the lungs. There is intralobular septa l thickening present. Subpleural nodule measuring 4 mm series 4 image 51 in the right upper lung. Str eaky atelectasis in the lung bases. Peripheral reticulation seen throughout the lungs. Left upper luigi g subpleural nodule measuring 7 mm series 4 image 76. Airway: Large airways are patent. Heart: Heart is mildly enlarged for size. There is moderate to severe coronary artery atherosclerosis . Vasculature: No evidence of aortic aneurysm. Mediastinum: No gross evidence of adenopathy. Musculoskeletal: No acute osseous abnormalities Soft Tissues: Unremarkable. Lower neck: No significant findings. Upper Abdomen: No significant findings. IMPRESSION: 1. No evidence of pulmonary embolism. 2. Cardiomegaly with pulmonary vascular congestion, correlate with serum BNP. 3. Scattered streaky atelectasis and/or scarring which could be sequela prior atypical pneumonia. 4. Bilateral nodular changes in the significantly changed from 07/11/2023. Follow-up in 3-6 months re commended to ensure stability. Follow up recommendations for incidental pulmonary nodules, if there are any, are per [employer] or [employer].
== END | disposition home or self-care (01) ==
LOC: RADCTMAIN 15:23
PROVIDERS: ATTEND Internal Medicine Critical Care Medicine
DX: I51.7 Cardiomegaly (principal); J98.11 Atelectasis; J98.4 Other disorders of lung; R09.89 Other specified symptoms and signs involving the circulatory and respiratory systems
CPT/HCPCS: 82565; 84520; 71275; 36415; Q9967

== ENCOUNTER 2023-09-08 08:47 | Day surgery (SDC) | payer BC ==
[2023-09-02 16:20] VITALS: BMI 33.9
[~2023-09-08 08:47] MED LIST: ALPRAZolam 0.25 MG TAB PO PRN; ALPRAZolam 0.5 MG TAB PO PRN; ASPIRIN 325 MG TAB PO STA; HEPARIN SODIUM,PORCINE (1 ML) 2,500 UNIT in SODIUM CHLORIDE 0.9% 250 ML IRRIGATION PRN; HEPARIN SODIUM,PORCINE 10,000 UNIT in SODIUM CHLORIDE 0.9% 1,000 ML IRRIGATION PRN; NITROGLYCERIN SL TABS 0.4 MG TAB SUBLINGUAL PRN
[2023-09-08] MEDS: SODIUM CHLORIDE 0.9% 1,000 ML in EMPTY BAG 1 BAG IV SCH (09:22)
[2023-09-08 09:28] LABS: Basophils # (A) 0.1 k/uL (0-0.2); Basophils % (A) 1 %; Eosinophils # (A) 0.4 k/uL (0-0.7); Eosinophils % (A) 5 %; HCT 39.4 % (39.0-53.0); HGB 13.4 gm/dL (13.0-17.5); Lymphocytes # (A) 1.7 k/uL (1.0-4.8); Lymphocytes % (A) 19 %; MCH 31.5 pg (25.0-35.0); MCHC 33.9 g/dL (31.0-37.0); Monocytes # (A) 0.5 k/uL (0-1.0); Monocytes % (A) 5 %; Neutrophils # (A) 5.9 k/uL (1.3-7.7); Neutrophils % (A) 67 %; Platelet Count 211 k/uL (150-450); RBC 4.25 m/uL (4.30-5.90); WBC 8.8 k/uL (3.8-10.6)
[2023-09-08 09:40] LABS: African American GFR (CKD) >90 (>60 ml/min/1.73 sqM); Anion Gap 6 mmol/L; Blood Urea Nitrogen 14 mg/dL (9-20); Calcium 9.6 mg/dL (8.4-10.2); Carbon Dioxide 26 mmol/L (22-30); Chloride 106 mmol/L (98-107); Glucose 99 mg/dL (74-99); Non-African American GFR(CKD) >90 (>60 ml/min/1.73 sqM); Potassium 4.8 mmol/L (3.5-5.1); Sodium 138 mmol/L (137-145)
[2023-09-08 09:43] VITALS: RESP 18; TEMP 98
[2023-09-08 09:46] LABS: MCV 92.8 fL (80.0-100.0)
[2023-09-08] MEDS: fentaNYL (PF) 50 MCG/ML 2 ML AMP IVP ONE (11:38)
[2023-09-08] MEDS: LIDOCAINE 1% INJ 10MG/ML (20 ML MDV) SQ ONE (11:41)
[2023-09-08] MEDS: VERAPAMIL SYRINGE (5 MG/10 ML) INTRAARTER ONE (11:43)
[2023-09-08] MEDS: HEPARIN SODIUM 1,000 UN/ML (10ML VL) IV ONE (11:47)
[2023-09-08] MEDS: IOPAMIDOL-370 100ML BTL INJ ONE (12:00)
[2023-09-08] MEDS ORDERED: RX INFO: IV CONTRAST WAS GIVEN 1 EACH MISC MISCELLANE PRN (12:10)
[2023-09-08] MEDS ORDERED: SODIUM CHLORIDE 0.9% 1,000 ML IV SCH (12:15)
--- NOTE | 2023-09-08 12:17 | P.CARDCATH ---
Date of Procedure: 09/08/23 Description of Procedure: Cardiac Catheterization: The patient is a 63-year-old male with known history of hypertension, hyperlipidemia, peripheral vascular disease who recently presented with symptoms of CHF and was found to have severe cardiomyopathy and had an abnormal MPI. Recommendations were made regarding cardiac catheterization, the risks and the complications were discussed with the patient who is in full understanding and agreement. 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 Using Xylocaine Anesthesia and modified Seldinger technique, a 6-Chinese sheath was introduced in the right radial artery . Subsequently, selective coronary angiography was performed using a 5-Chinese 3.5 bend Harris catheter. Multiple views of the coronary artery including hemiaxial views were obtained. The 5 Chinese pigtail catheter was used to cross the aortic valve and LVEDP was calculated. An DAN view of the left ventricle was obtained. Following that, catheter and sheath were removed. Hemostasis was obtained with deployment of vascular band . There was no immediate complication. Patient was returned to room in stable condition. Of note, the patient received a total of 5000 units of intravenous heparin as well as intra-arterial verapamil. Findings: Left main: This is a short size vessel, bifurcating into LAD and left circumflex, left main has no high-grade stenosis LAD: This is a large size vessel, giving rise to 3 diagonal branch. Proximally prior to the takeoff of the first diagonal l branch there is a what appears to be an ulcerated plaque with a 40% stenosis prior to the takeoff of the diagonal branch. The rest of the vessel has mild intimal disease with no high-grade stenosis Left circumflex: This is a nondominant vessel giving rise to an obtuse marginal branch that has no evidence of high-grade stenosis RCA: This is a dominant vessel, bifurcating distally to PDA and PLV. The proximal and mid RCA have plaques of 20 to 30% without any high-grade stenosis. Left Ventriculogram: Performed in the DAN view and revealed global hypokinesis ejection fraction is estimated at 40 to 45%. There was 1-2+ mitral regurgitation. The abdominal aortic stenting was noted Hemodynamics: There was no gradient across the aortic valve, LVEDP was 20-25 mmHg Conclusion: 1. Moderate disease in the proximal LAD 2. Mild disease in the RCA 3. Moderately impaired left ventricle systolic function 4. Evidence of abdominal aortic stenting Recommendations: I have recommended to continue medical therapy, the findings are consistent with nonischemic cardiomyopathy, we will optimize his medical regimen. The findings and the recommendations were discussed with the patient and the family and they were in full understanding and agreement. Duration of sedation is 18 minutes..
[2023-09-08 16:13] VITALS: BP 118/86; PULSE 76
[2023-09-08] MEDS ORDERED: METOPROLOL TARTRATE 25 MG TAB PO SCH (21:00)
[2023-09-09] MEDS ORDERED: ATORVASTATIN 20 MG TAB PO SCH (09:00)
[2023-09-09] MEDS ORDERED: SPIRONOLACTONE 25 MG TAB PO SCH (09:00)
[2023-09-09] MEDS ORDERED: ASPIRIN 81 MG PO SCH (09:00)
== END 2023-09-08 16:03 | disposition home or self-care (01) ==
LOC: CATHCVL 08:47
PROVIDERS: ATTEND Internal Medicine Interventional Cardiology
DX: I34.0 Nonrheumatic mitral (valve) insufficiency (principal); I73.9 Peripheral vascular disease, unspecified; I25.10 Atherosclerotic heart disease of native coronary artery without angina pectoris; I10 Essential (primary) hypertension; E78.5 Hyperlipidemia, unspecified; I42.9 Cardiomyopathy, unspecified; Z88.2 Allergy status to sulfonamides; Z87.891 Personal history of nicotine dependence; Z79.84 Long term (current) use of oral hypoglycemic drugs; Z79.899 Other long term (current) drug therapy
CPT/HCPCS: 93458; 80048; 85025; 99152; 99153; C1769 ×2; C1894; J2001; J3010; J1644; Q9967